=== PATIENT | male | born 1980 | race Caucasian/White ===

== ENCOUNTER 2025-03-14 18:19 | Emergency (ER) | payer OTHER, SELFPAY ==
[2025-03-14 18:28] VITALS: BP 121/76; PULSE 70; RESP 18; TEMP 36.2; O2SAT 98; BMI 29.9
[2025-03-14 20:01] VITALS: BP 121/79; PULSE 66; RESP 14; O2SAT 97
--- NOTE | 2025-03-14 20:25 | DI.RAD.S_ITS ---
1PROCEDURE: XR HAND RT MIN 3V INDICATIONS: Hand injury TECHNIQUE: 3 views of the hand(s) acquired. COMPARISON: None. FINDINGS: Bones: No fractures or dislocations. Carpal bones are normally aligned. No suspicious bony lesions. Note is made of negative ulnar variance. This can predispose to development of AVN of the lunate. However, no findings of AVN of the lunate are seen on these plain films. Soft tissues: No suspicious soft tissue calcifications. No radiopaque foreign bodies are seen. IMPRESSION: No significant plain film abnormality is seen. Dictated by: Billy Beck M.D. on 03/14/2025 at 19:53 Approved by: Billy Beck M.D. on 03/14/2025 at 19:54
--- NOTE | 2025-03-14 20:34 | PC.WOUNDPHOT ---
R hand, between thumb & index finger
--- NOTE | 2025-03-14 20:44 | ED_ITS ---
HPI - Extremity Injury (Upper) General Chief Complaint: Extremity Injury, Upper Stated Complaint: injury right hand Time Seen by Provider: 03/14/25 20:17 Source: patient Mode of arrival: Ambulatory History of Present Illness HPI narrative: 45-year-old male was camping [place] [facility] last night a p.m. when he was attempting to make campfire, grabbed [place] branch that was quite hard, snapped, sustained laceration to the right hand 1st webspace. No foreign body removed, unclear how much any deep penetration there might have been. He called his [facility] nurse and was given sepsis infection warnings. Here for evaluation about 25 hours after the event. No fevers or chills. Can flex and extend his hand, no swelling or redness to his wrist. Can not recall the exact date of last tetanus, thinks it has been well more than 5 years. Related Data Previous Rx's ?Medication ?Instructions ?Recorded cephalexin 500 mg capsule 500 mg PO QID 7 days #28 cap s 03/14/25 Allergies Allergy/AdvReac Type Severity Reaction Status Date / Time No Known Drug Allergies Allergy Verified 03/14/25 18:27 Patient History Social History Smoking Status: Never smoker Smoking Status: Never smoker Exam Narrative Exam Narrative: GENERAL: Well-developed patient, in mild distress. HEAD: Atraumatic. Normocephalic. EYES: Pupils equal round and reactive. Extraocular motions intact. No scleral icterus. No injection or drainage. ENT: Nose without bleeding, purulent drainage. Throat without erythema, tonsillar hypertrophy or exudate. Airway patent. NECK: Trachea midline. Non tender CARDIOVASCULAR: Regular rate and rhythm without murmurs, gallops, or rubs. RESPIRATORY: Clear to auscultation. Breath sounds equal bilaterally. No wheezes, rales, or rhonchi. GASTROINTESTINAL: Abdomen soft, non-tender, nondistended. EXTREMITIES: Right hand 1st webspace with 1 cm wound, that is 25 hours old by history, no active bleeding. No visible or palpable foreign body. No significant swelling to the palmar aspect or dorsal aspect of the hand. He can fully cleansed and fully extend. Good range of motion right thumb and index finger. BACK: Nontender without deformity or crepitance. No flank tenderness. NEURO: AOx3. Motor functions grossly nonfocal. SKIN: No rash or erythema of visible areas Initial Vital Signs Initial Vital Signs: Vital Signs Temperature 97.1 F L 03/14/25 18:28 Pulse Rate 70 03/14/25 18:28 Respiratory Rate 18 03/14/25 18:28 Blood Pressure 121/76 03/14/25 18:28 Pulse Oximetry 98 03/14/25 18:28 Oxygen Delivery Method Room Air 03/14/25 18:28 Course Orders Ordered: ED Orders 03/14/25 20:25 XR hand RT min 3V Stat Discontinued Medications Bacitracin (Bacitracin Oint 0.9 Gm Pckt) 1 applic TOP NOW ONE Stop: 03/14/25 21:11 Last Admin: 03/14/25 21:12 Dose: 1 applic Documented By: ARCHIE Cephalexin HCl (Cephalexin 250 Mg Capsule) 500 mg PO NOW ONE Stop: 03/14/25 20:49 Last Admin: 03/14/25 21:01 Dose: 500 mg Documented By: ARCHIE Diphtheria/Tetanus/Acell Pertussis (Tet,Diph,Pertuss(Acell),Vac/Pf 0.5 Ml Syringe) 0.5 ml IM .ONCE ONE Stop: 03/14/25 20:49 Last Admin: 03/14/25 21:01 Dose: 0.5 ml Documented By: ARCHIE Vital Signs Vital signs: Vital Signs - 8 hr 03/14/25 18:28 03/14/25 20:01 03/14/25 21:47 Temperature 97.1 F L Pulse Rate 70 66 61 Respiratory Rate 18 14 15 Blood Pressure 121/76 121/79 110/70 Pulse Oximetry 98 97 96 Oxygen Delivery Method Room Air Room Air Room Air MDM - Extremity Injury (Upper) Imaging Data Extremity x-ray #1: Radiologist's Impression: Close Hand X-Ray (Signed) Blily Beck - 03/14/25 Launch?[address] [address] XRay Report Signed Patient: Clifton Marcelino MR#: [id number] : 1980 Acct:[id number] Age/Sex: 45 / M Date of Service: 03/14/25 Loc: ED Accession Number: [id number] Procedure: XR hand RT min 3V Ordering Provider: Augustine Chong MD 1PROCEDURE: XR HAND RT MIN 3V INDICATIONS: Hand injury TECHNIQUE: 3 views of the hand(s) acquired. COMPARISON: None. FINDINGS: Bones: No fractures or dislocations. Carpal bones are normally aligned. No suspicious bony lesions. Note is made of negative ulnar variance. This can predispose to development of AVN of the lunate. However, no findings of AVN of the lunate are seen on these plain films. Soft tissues: No suspicious soft tissue calcifications. No radiopaque foreign bodies are seen. IMPRESSION: No significant plain film abnormality is seen. Dictated by: Billy Beck M.D. on 03/14/2025 at 19:53 Approved by: Billy Beck M.D. on 03/14/2025 at 19:54 MDM Narrative Medical decision making narrative: 45-year-old male with injury to first hand webspace laceration that is now 25 hours old, sustained while camping [place], trying to break a tree branch for campfire. Afebrile, sirs screen negative. No significant hand swelling on exam, no palpable or visible foreign body. We discussed primary closure, at increased risk wound infection given possible organic material foreign body and/or micro contamination, also 25 hours duration open wound, will avoid primary closure for now, we will allow to heal secondarily for now, will start oral antibiotics. Oral cephalexin dose given. IM Tdap update X-ray shows no obvious fracture, no dislocation, no mention of any foreign bodies that are radiopaque. See radiology report. Oral cephalexin prescription sent to his pharmacy for further 7 day course. Repeat wound check exam requested 24 hours in his home area, or here if still in the area next couple of days, and if cannot make other follow up arrangements. Return precautions discussed. Discharge Plan Departure Patient Disposition: Home Clinical Impression: Laceration of hand Activity Restrictions/Additional Instructions: Right hand 1st webspace laceration injury from camp fire snapping piece of [employer] wood about 25 hours prior to arrival [facility]. No fever. Able to clench fist and fully extend hand. No red streaking up the wrist or throughout the palm of the hand or dorsal hand. No palpable foreign body. X-ray showed no fracture or foreign body, though [place] material is not usually radiopaque, it is possible have retained foreign body material from organic matter. Increased risk of infection due to possible retained foreign body, also long duration of time open wound 25 hours ago. We did discuss primary closure suturing, but significant increased risk of infection with primary closure, wound should secondarily he will in by itself. No active bleeding at this time. Oral antibiotics started, 1st dose cephalexin given, prescription sent to local pharmacy for further antibiotics 7 day course. Wound check advised in 48 hours at this/nearest Emergency Department, or with your regular provider if heading back to your home town area. Take Tylenol and or Motrin [id number] for pain control. Tetanus shot update was also given. Prescriptions: New cephalexin 500 mg capsule 500 mg PO QID 7 Days Qty: 28 0RF Stand Alone Forms: Patient Portal/API
[2025-03-14] MEDS: cephALEXin 250 MG CAPSULE 500 MG PO (21:01)
[2025-03-14] MEDS: TET,DIPH,PERTUSS(ACELL),VAC/PF 0.5 ML SYRINGE IM (21:01)
[2025-03-14] MEDS: BACITRACIN OINT 0.9 GM PCKT 1 APPLIC TOP (21:12)
[2025-03-14 21:47] VITALS: BP 110/70; PULSE 61; RESP 15; O2SAT 96
== END 2025-03-14 21:49 | disposition home or self-care (01) ==
PROVIDERS: Emergency Provider Emergency Medicine
DX: S61.411A Laceration without foreign body of right hand, initial encounter (principal); W26.9XXA Contact with unspecified sharp object(s), initial encounter; Z23 Encounter for immunization
CPT/HCPCS: 73130; 90471; 99283; 99284; 90715